=== PATIENT | male | born 1990 | race Caucasian/White ===

== ENCOUNTER 2016-05-19 18:39 | Emergency (ER) | payer OTHER ==
[2016-05-19 18:43] VITALS: BP 134/66; PULSE 108; RESP 20; TEMP 98.1
[2016-05-19] MEDS ORDERED: DIPH,PERTUS(ACELL)TETVAC-LF 0.5 ML VIAL IM ONE (19:09)
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
== END 2016-05-19 20:23 | disposition home or self-care (01) ==
LOC: EC 18:39
DX: S01.81XA Laceration without foreign body of other part of head, initial encounter (principal); W20.8XXA Other cause of strike by thrown, projected or falling object, initial encounter; F17.200 Nicotine dependence, unspecified, uncomplicated; Z23 Encounter for immunization
CPT/HCPCS: 12013; 90471; 90715; 99282

== ENCOUNTER 2018-06-05 17:40 | Emergency (ER) | payer BC, OTHER ==
[2018-06-05 17:44] VITALS: BP 129/81; PULSE 81; RESP 18; TEMP 98
[2018-06-05] MEDS ORDERED: LIDOCAINE 1% INJ 10MG/ML (20 ML MDV) SQ ONE (17:54)
[2018-06-05] MEDS ORDERED: DIPH,PERTUS(ACELL)TETVAC-LF 0.5 ML VIAL IM ONE (17:56)
--- NOTE | 2018-06-05 18:55 | ED ---
General Adult HPI - General Chief complaint: Wound/Laceration Stated complaint: LEFT WRIST LACERATION Time Seen by Provider: 06/05/18 17:46 Source: patient, RN notes reviewed Mode of arrival: ambulatory Limitations: no limitations - History of Present Illness Initial comments: 27-year-old male presents to the emergency department for a chief complaint of laceration of the left wrist. Patient states he was opening his cutting knife when he accidentally cut himself. Patient denies knife breaking at all. Patient denies any difficulty moving the wrist or fingers. Patient denies any loss of sensation. Patient states bleeding is controlled. Patient denies any other injuries. Patient is up-to-date on tetanus.Patient has no other complaints at this time including shortness of breath, chest pain, abdominal pain, nausea or vomiting, headache, or visual changes. - Related Data Previous Rx's Medication Instructions Recorded Cephalexin [Keflex] 500 mg PO Q6HR #28 cap 05/19/16 Allergies Allergy/AdvReac Type Severity Reaction Status Date / Time No Known Allergies Allergy Verified 06/05/18 17:43 Review of Systems ROS Statement: Those systems with pertinent positive or pertinent negative responses have been documented in the HPI. ROS Other: All systems not noted in ROS Statement are negative. Past Medical History Past Medical History: No Reported History History of Any Multi-Drug Resistant Organisms: None Reported Past Surgical History: No Surgical Hx Reported Past Psychological History: No Psychological Hx Reported Smoking Status: Former smoker Past Alcohol Use History: Occasional Past Drug Use History: None Reported General Exam Limitations: no limitations General appearance: alert, in no apparent distress Head exam: Present: atraumatic, normocephalic, normal inspection Eye exam: Present: normal appearance, PERRL, EOMI. Absent: scleral icterus, conjunctival injection, periorbital swelling ENT exam: Present: normal exam, mucous membranes moist Neck exam: Present: normal inspection, full ROM. Absent: tenderness, mening ismus, lymphadenopathy Respiratory exam: Present: normal lung sounds bilaterally. Absent: respiratory distress, wheezes, rales, rhonchi, stridor Cardiovascular Exam: Present: regular rate, normal rhythm, normal heart sounds. Absent: systolic murmur, diastolic murmur, rubs, gallop, clicks Extremities exam: Present: full ROM (Full range of motion of the left wrist and all digits in the left hand), normal capillary refill (Capillary refill less than 2 seconds, radial pulse 2+), other (Sensation intact in the left upper e xtremity. However there is a 4 cm laceration on the palmar aspect of the left hand extending into the left wrist. No deep structure injuries noted after thorough inspection). Absent: tenderness (Tenderness over the laceration site), pedal edema, joint swelling, calf tenderness Neurological exam: Present: alert, oriented X3, CN II-XII intact Psychiatric exam: Present: normal affect, normal mood Course Vital Signs 06/05/18 17:41 Temperature 98.0 F Pulse Rate 81 Respiratory 18 Rate Blood Pressure 129/81 O2 Sat by Pulse 99 Oximetry Procedures - Laceration Laceration #1 Consent Obtained: verbal consent Indication: laceration Site: hand Size (cm): 4 Description: linear Depth: simple, single layer Anesthetic Used: lidocaine 1% Anesthesia Technique: local infiltration Amount (mls): 9 Pre-repair: wound explored, irrigated extensively (With saline pressure irrigation), deep structures intact, wound margins revised (Could tissue trimmed back) Type of Sutures: other (Ethilon) Size of Sutures: 4-0 Number of Sutures: 8 Technique: simple, interrupted Patient Tolerated Procedure: well, no complications Medical Decision Making - Medical Decision Making 27-year-old male presents for laceration to left wrist and hand. This was accidentally when using a knife. Patient has full range of motion stand digits of the left upper extremity.. Wound appears clean however was cleaned thoroughly with saline pressure irrigation. Wound was explored extensively, no evidence for deep structure injury or FB. Wound is about 4 cm and was closed with 8 sutures. Discussed return precautions including those for infection. Discussed returning in 7-10 days for suture removal. Patient will be careful about movement of the wrist especially extending due to possibility of breaking sutures. He will follow up with primary care for wound recheck and return here if he has any worsening symptoms. Disposition Clinical Impression: Laceration Disposition: HOME SELF-CARE Condition: Good Instructions (If sedation given, give patient instructions): Care For Your Stitches (ED), Laceration (ED) Additional Instructions: Please keep the area clean. Monitor for signs of infection such as spreading or streaking redness, drainage, fevers or chills and return if these occur. Return if you have any pain or difficulty moving her fingers or wrist. Follow- up with primary care or orthopedics in one to 2 days. Return here to the emergency department in 7-10 days to have 8 sutures removed. Return earlier if you have an worsening symptoms. Is patient prescribed a controlled substance at d/c from ED?: No Referrals: Ronnie Mo MD [STAFF PHYSICIAN] - 1-2 days Time of Disposition: 18:53
== END 2018-06-05 19:14 | disposition home or self-care (01) ==
LOC: EC 17:40
DX: S61.512A Laceration without foreign body of left wrist, initial encounter (principal); Z87.891 Personal history of nicotine dependence; Z53.29 Procedure and treatment not carried out because of patient's decision for other reasons; W26.0XXA Contact with knife, initial encounter
CPT/HCPCS: 99282; 12002; J2001

== ENCOUNTER 2018-12-20 17:06 | Emergency (ER) | payer BC, OTHER ==
[2018-12-20 17:39] VITALS: BP 129/73; PULSE 97; RESP 16; TEMP 98.2
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
== END 2018-12-20 18:16 | disposition home or self-care (01) ==
LOC: EC 17:06
DX: S01.81XA Laceration without foreign body of other part of head, initial encounter (principal); Z87.891 Personal history of nicotine dependence; W18.09XA Striking against other object with subsequent fall, initial encounter; Y92.811 Bus as the place of occurrence of the external cause
CPT/HCPCS: 99282

== ENCOUNTER → 2022-07-19 | Outpatient (CLI) | payer BC ==
[2022-07-19 20:21] LABS: Basophils # (A) 0.02 X 10*3/uL (0.00-0.10); Basophils % (A) 0.3 %; Eosinophils # (A) 0.03 X 10*3/uL (0.04-0.35); Eosinophils % (A) 0.5 %; HCT 41.9 % (39.6-50.0); HGB 14.4 g/dL (13.0-17.0); Immature Grans, Automated 0.2 %; Lymphocytes # (A) 1.48 X 10*3/uL (0.90-5.00); Lymphocytes % (A) 25.1 %; MCH 33.6 pg (27.0-32.0); MCHC 34.4 g/dL (32.0-37.0); MCV 97.7 fL (80.0-97.0); Mean Platelet Volume 10.5 fL (9.5-12.2); Monocytes # (A) 0.56 X 10*3/uL (0.20-1.00); Monocytes % (A) 9.5 %; NRBC Per 100 WBC 0 /100 WBCS (0.0-0.0); Neutrophils % (A) 64.4 %; Platelet Count 247 X 10*3/uL (140-440); RBC 4.29 X 10*6/uL (4.40-5.60); RDW 11.9 % (11.5-14.5)
[2022-07-19 20:47] LABS: ALT 32 U/L (10-49); AST 35 U/L (14-35); African American GFR (CKD) 138.6 (60.0-200.0); Albumin/Globulin Ratio 2.55 (1.60-3.17); Alkaline Phosphatase 65 U/L (41-126); BUN/Creat Ratio 11.21 Ratio (12.00-20.00); Blood Urea Nitrogen 9.2 mg/dL (9.0-27.0); Calcium 9.8 mg/dL (8.7-10.3); Carbon Dioxide 28.9 mmol/L (20.0-27.5); Chloride 101 mmol/L (96-109); Chol/HDL Ratio 2.21 Ratio; Glucose 95 mg/dL (70-110); LDL Cholesterol,Calculated 99.5 mg/dL (0.0-131.0); Non-African American GFR(CKD) 119.6 (60.0-200.0); Potassium 4.6 mmol/L (3.5-5.5); Sodium 140 mmol/L (135-145)
== END | disposition home or self-care (01) ==
LOC: LABWHC1 15:04
PROVIDERS: ATTEND Pediatrics
DX: Z00.00 Encounter for general adult medical examination without abnormal findings (principal); E78.5 Hyperlipidemia, unspecified; D64.9 Anemia, unspecified; R00.2 Palpitations
CPT/HCPCS: 36415; 80053; 80061; 85025

== ENCOUNTER 2023-12-23 20:56 | Observation (INO) | payer OTHER ==
[2023-12-23] MEDS ORDERED: LORazepam 2 MG/ML INJ IV PRN ×2 (21:25)
[2023-12-23 22:01] LABS: Basophils % (A) 0 %; Eosinophils % (A) 0 %; HCT 42.5 % (39.0-53.0); HGB 14.4 gm/dL (13.0-17.5); Lymphocytes % (A) 34 %; MCH 33.2 pg (25.0-35.0); MCHC 33.8 g/dL (31.0-37.0); Mean Platelet Volume 7.6; Monocytes # (A) 0.4 k/uL (0-1.0); Monocytes % (A) 7 %; Neutrophils # (A) 3.3 k/uL (1.3-7.7); Neutrophils % (A) 56 %; Platelet Count 334 k/uL (150-450); RBC 4.34 m/uL (4.30-5.90); RDW 12.2 % (11.5-15.5); WBC 5.9 k/uL (3.8-10.6)
[2023-12-23] MEDS: ONDANSETRON 4 MG/2 ML VIAL IVP STA (22:15)
[2023-12-23 22:16] LABS: ALT 28 U/L (4-49); AST 48 U/L (17-59); African American GFR (CKD) >90 (>60 ml/min/1.73 sqM); Albumin 4.4 g/dL (3.5-5.0); Alkaline Phosphatase 59 U/L (38-126); Anion Gap 10 mmol/L; Blood Urea Nitrogen 3 mg/dL (9-20); Calcium 8.6 mg/dL (8.4-10.2); Carbon Dioxide 28 mmol/L (22-30); Chloride 107 mmol/L (98-107); Glucose 116 mg/dL (74-99); Lipase 164 U/L (23-300); Magnesium 1.9 mg/dL (1.6-2.3); Non-African American GFR(CKD) >90 (>60 ml/min/1.73 sqM); Phosphorus 3.4 mg/dL (2.5-4.5); Potassium 3.8 mmol/L (3.5-5.1); Sodium 145 mmol/L (137-145); Total Bilirubin 0.7 mg/dL (0.2-1.3); Total Protein 6.7 g/dL (6.3-8.2)
[2023-12-23] MEDS: SODIUM CHLORIDE 0.9% 1,000 ML IV STA (22:16)
[2023-12-23 22:31] LABS: Alcohol 352 mg/dL
--- NOTE | 2023-12-23 22:51 | ED ---
Alcohol HPI - General Chief Complaint: Alcohol Stated Complaint: Withdrawls Time Seen by Provider: 12/23/23 21:10 Source: patient Mode of arrival: ambulatory - History of Present Illness Initial Comments: 33-year-old male with history of alcohol use disorder presenting with chief co mplaint of alcohol withdrawal. Patient normally drinks 12 beers a day. His last drink was 4 hours ago. States that he has been on a binge for the last 2 days. Prior to that he was sober for the last 2 months. He is experiencing nausea, vomiting, diarrhea, tremoring, diaphoresis, anxiety. Denies headache. Denies chest pain or difficulty breathing. No abdominal pain. Patient was previously using Librium to help with his withdrawal symptoms however he is currently out. - Related Data Previous Rx's Medication Instructions Recorded Disulfiram 250 mg PO DIRECTED #60 tab 12/24/23 Famotidine [Pepcid] 20 mg PO BID #60 tablet 12/24/23 Allergies Allergy/AdvReac Type Severity Reaction Status Date / Time No Known Allergies Allergy Verified 12/24/23 07:43 Review of Systems ROS Statement: Those systems with pertinent positive or pertinent negative responses have been documented in the HPI. ROS Other: All systems not noted in ROS Statement are negative. Past Medical History Past Medical History: No Reported History History of Any Multi-Drug Resistant Organisms: None Reported Past Surgical History: No Surgical Hx Reported Past Psychological History: No Psychological Hx Reported Smoking Status: Vaper Past Alcohol Use History: Abuse, Occasional Past Drug Use History: None Reported General Exam General appearance: alert, in no apparent distress Head exam: Present: atraumatic, normocephalic, normal inspection Eye exam: Present: normal appearance Neck exam: Present: normal inspection. Absent: meningismus Respiratory exam: Present: normal lung sounds bilaterally. Absent: respiratory distress, wheezes, rales, rhonchi, stridor Cardiovascular Exam: Present: regular rate, normal rhythm, normal heart sounds. Absent: systolic murmur, diastolic murmur, rubs, gallop, clicks Neurological exam: Present: alert, oriented X3 Psychiatric exam: Present: normal affect, normal mood Skin exam: Present: warm, dry Course Vital Signs 12/23/23 12/23/23 12/23/23 20:58 23:05 23:43 Temperature 97.7 F Pulse Rate 85 60 96 Respiratory 18 16 17 Rate Blood Pressure 135/92 110/86 114/77 O2 Sat by Pulse 94 L 98 98 Oximetry 12/24/23 02:00 Temperature Pulse Rate 64 Respiratory 18 Rate Blood Pressure 122/84 O2 Sat by Pulse 98 Oximetry Medical Decision Making - Medical Decision Making Was pt. sent in by a medical professional or institution (MAYANK Caballero, COMMUNITY DEVELOPMENT COORDINATOR, urgent care, hospital, or [facility]...) When possible be specific @ -No Did you speak to anyone other than the patient for history (EMS, parent, family, police, friend...)? What history was obtained from this source @ -No Did you review nursing and triage notes (agree or disagree)? Why? @ -I reviewed and agree with nursing and triage notes Were old charts reviewed (outside hosp., previous admission, EMS record, old EKG, old radiological studies, urgent care reports/EKG's, [facility] records)? Report findings @ -No old charts were reviewed Differential Diagnosis (chest pain, altered mental status, abdominal pain women, abdominal pain men, vaginal bleeding, weakness, fever, dyspnea, syncope, headache, dizziness, GI bleed, back pain, seizure, CVA, palpatations, mental health, musculoskeletal)? @ -Differential includes alcohol withdrawal, DTs, alcohol intoxication, this is not an all-inclusive list EKG interpreted by me (3pts min.). @ -As above X-rays interpreted by me (1pt min.). @ -None done CT interpreted by me (1pt min.). @ -None done U/S interpreted by me (1pt. min.). @ -None done What testing was considered but not performed or refused? (CT, X-rays, U/S, labs)? Why? @ -None What meds were considered but not given or refused? Why? @ -None Did you discuss the management of the patient with other professionals (professionals i.e. MAYANK Caballero, COMMUNITY DEVELOPMENT COORDINATOR, lab, RT, psych nurse, child protective services social worker, swimming pool installer, teacher, landing signal officer, rn case mgr)? Give summary @ -My attending spoke with [facility] provider on-call, accepts admission Was smoking cessation discussed for >3mins.? @ -No Was critical care preformed (if so, how long)? @ -No Were there social determinants of health that impacted care today? How? (Homelessness, low income, unemployed, alcoholism, drug addiction, trans portation, low edu. Level, literacy, decrease access to med. care, fpc, rehab)? @ -No Was there de-escalation of care discussed even if they declined (Discuss DNR or withdrawal of care, Hospice)? DNR status @ -No What co-morbidities impacted this encounter? (DM, HTN, Smoking, COPD, CAD, Cancer, CVA, ARF, Chemo, Hep., AIDS, mental health diagnosis, sleep apnea, morbid obesity)? @ -Alcohol use disorder Was patient admitted / discharged? Hospital course, mention meds given and route, prescriptions, significant lab abnormalities, going to OR and other pertinent info. @ -33-year-old male presenting for evaluation of experiencing alcohol withdrawals. Patient is a daily drinker and has been on a binge for the last 2 days. Experiencing nausea vomiting diarrhea and some delirium also admits to tremors and headache. Is hoping to try rehab. History and physical examination are conducted. Serum alcohol 352. Remainder of labs are essentially unremarkable. Patient will be admitted for alcohol intoxication, hopes to attend rehab afterwards. My attending is Dr. Warner Undiagnosed new problem with uncertain prognosis? @ -No Drug Therapy requiring intensive monitoring for toxicity (Heparin, Nitro, Insulin, Cardizem)? @ -No Were any procedures done? @ -No Diagnosis/symptom? @ -Alcohol intoxication Acute, or Chronic, or Acute on Chronic? @ -Acute Uncomplicated (without systemic symptoms) or Complicated (systemic symptoms)? @ -Complicated Side effects of treatment? @ -No Exacerbation, Progression, or Severe Exacerbation? @ -No Poses a threat to life or bodily function? How? (Chest pain, USA, SD, pneumonia, PE, COPD, DKA, ARF, appy, cholecystitis, CVA, Diverticulitis, Homicidal, Suicidal, threat to staff... and all critical care pts) @ -Yes - Lab Data Result diagrams: 12/23/23 21:49 12/23/23 21:49 Lab Results 12/23/23 12/23/23 12/23/23 Range/Units 21:49 21:49 23:00 WBC 5.9 (3.8-10.6) k/uL RBC 4.34 (4.30-5.90) m/uL Hgb 14.4 (13.0-17.5) gm/dL Hct 42.5 (39.0-53.0) % MCV 98.0 (80.0-100.0) fL MCH 33.2 (25.0-35.0) pg MCHC 33.8 (31.0-37.0) g/dL RDW 12.2 (11.5-15.5) % Plt Count 334 (150-450) k/uL MPV 7.6 Neutrophils % 56 % Lymphocytes % 34 % Monocytes % 7 % Eosinophils % 0 % Basophils % 0 % Neutrophils # 3.3 (1.3-7.7) k/uL Lymphocytes # 2.0 (1.0-4.8) k/uL Monocytes # 0.4 (0-1.0) k/uL Eosinophils # 0.0 (0-0.7) k/uL Basophils # 0.0 (0-0.2) k/uL Sodium 145 (137-145) mmol/L Potassium 3.8 (3.5-5.1) mmol/L Chloride 107 (98-107) mmol/L Carbon Dioxide 28 (22-30) mmol/L Anion Gap 10 mmol/L BUN 3 L (9-20) mg/dL Creatinine 0.65 L (0.66-1.25) mg/dL Est GFR (CKD-EPI)AfAm >90 (>60 ml/min/1.73 sqM) Est GFR (CKD-EPI)NonAf >90 (>60 ml/min/1.73 sqM) Glucose 116 H (74-99) mg/dL Calcium 8.6 (8.4-10.2) mg/dL Phosphorus 3.4 (2.5-4.5) mg/dL Magnesium 1.9 (1.6-2.3) mg/dL Total Bilirubin 0.7 (0.2-1.3) mg/dL AST 48 (17-59) U/L ALT 28 (4-49) U/L Alkaline Phosphatase 59 (38-126) U/L Total Protein 6.7 (6.3-8.2) g/dL Albumin 4.4 (3.5-5.0) g/dL Lipase 164 (23-300) U/L Urine Opiates Screen Not Detected (NotDetected) Ur Oxycodone Screen Not Detected (NotDetected) Urine Methadone Screen Not Detected (NotDetected) Ur Barbiturates Screen Not Detected (NotDetected) U Tricyclic Antidepress Not Detected (NotDetected) Ur Phencyclidine Scrn Not Detected (NotDetected) Ur Amphetamines Screen Not Detected (NotDetected) U Methamphetamines Scrn Not Detected (NotDetected) U Benzodiazepines Scrn Not Detected (NotDetected) Urine Cocaine Screen Not Detected (NotDetected) U Marijuana (THC) Screen Not Detected (NotDetected) Serum Alcohol 352 H* mg/dL Disposition Clinical Impression: Alcoholic intoxication Disposition: ADMITTED IP TO THIS [facility] Time of Disposition: 01:04
[2023-12-23 23:54] LABS: Amphetamine Screen,Urine Not Detected (NotDetected); Barbiturate Screen,Urine Not Detected (NotDetected); Benzodiazepines Screen,Urine Not Detected (NotDetected); Cocaine Screen,Urine Not Detected (NotDetected); Methadone Screen, Urine Not Detected (NotDetected); Opiate Screen,Urine Not Detected (NotDetected); Oxycodone Screen, Urine Not Detected (NotDetected); Phencyclidine Screen,Urine Not Detected (NotDetected); Tricyclic Antidepressant,Urine Not Detected (NotDetected); Urn Cannabinoid Scrn Not Detected (NotDetected)
[2023-12-24] MEDS ORDERED: ACETAMINOPHEN TAB 325 MG TAB PO PRN (00:47)
[2023-12-24] MEDS ORDERED: NALOXONE 0.4 MG/ML 1 ML VIAL IV PRN (00:47)
[2023-12-24] MEDS: SODIUM CHLORIDE 0.9% 1,000 ML IV SCH (02:16)
[2023-12-24] MEDS: LORazepam 2 MG/ML INJ IV PRN (03:17)
[2023-12-24] MEDS: ONDANSETRON 4 MG/2 ML VIAL IVP PRN (09:40)
[2023-12-24] MEDS: FAMOTIDINE 20 MG TAB PO STA (11:01)
[2023-12-24] MEDS: ENOXAPARIN 40 MG/0.4 ML SYRINGE SQ SCH (11:06)
[2023-12-24 13:45] VITALS: BP 126/74; PULSE 90; RESP 14; TEMP 98.4
--- NOTE | 2023-12-24 17:29 | P.HPIM ---
History of Present Illness H&P Date: 12/24/23 Chief Complaint: Alcohol intoxication Pleasant 33-year-old patient follows with Dr. Copeland. Patient been drinking rather heavy alcohol for close to 2 years. He drinks typically malt beer anywhere from 12-20 beers a day. Patient does live with his girlfriend. And 2 children 4 years of age and 8 months of age. 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 Specially last 2 days. Patient thinks he is having a lot of stress from work. He did call up his boss who then sent him down to the ER. Also patient having some nausea. Slight vomiting. 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 Children 4 years and 8 months of age. Did smoke in the past. Drinks anywhere from 12-20 malt beer a day for last 2 years. More binge drinking last 2 3 days. Physical examination: VITAL SIGNS: 96.4, 55, 16, 117 x 70, 97% room air GENERAL: BMI 23.0, reclining bed awake a bit tired. EYES: Pupils equal. Conjunctiva kathy l. HEENT: External appearance of nose and ears normal, oral cavity grossly normal. NECK: JVD not raised; masses not palpable. HEART: First and second heart sounds are normal; no edema. LUNGS: Respiratory rate normal; clear to auscultation. ABDOMEN: Soft, nontender, liver spleen not palpable, no masses palpable. PSYCH: Alert and oriented x3; mood and affect slightly anxious l. MUSCULOSKELETAL:No Clubbing/cyanosis;muscles-grossly intact NEUROLOGICAL: Cranial nerves grossly intact; no facial asymmetry, power and sensation grossly intact. LYMPHATICS: No lymph nodes palpable in the axilla and neck INVESTIGATIONS, reviewed in the clinical context: December 23, 2023: White count 5.9 hemoglobin 14.4 platelets 334 sodium 145 potassium 3.8 BUN 3 creatinine 0.65 Urine drug screen: Negative Serum alcohol 352 Assessment plan: -Acute alcohol intoxication. Patient called his boss to bring him to the hospital/ER. [facility] protocol -Alcohol use disorder. Patient has not tried [place] or other supportive help in the past. Willing to do the same. 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 Soft diet Patient to be tried on a soft diet. Pepcid added. Increase activity. Counseled. Past Medical History Past Medical History: No Reported History History of Any Multi-Drug Resistant Organisms: None Reported Past Surgical History: No Surgical Hx Reported Past Psychological History: No Psychological Hx Reported Smoking Status: Current some day smoker, Vaper Past Alcohol Use History: Abuse, Occasional Past Drug Use History: Marijuana Medications and Allergies Home Medications Medication Instructions Recorded Confirmed Type Disulfiram 250 mg PO DIRECTED #60 tab 12/24/23 Rx Famotidine [Pepcid] 20 mg PO BID #60 tablet 12/24/23 Rx Allergies Allergy/AdvReac Type Severity Reaction Status Date / Time No Known Allergies Allergy Verified 12/24/23 07:43 Physical Exam Vitals: Vital Signs Temp Pulse Pulse Resp BP BP Pulse Ox 12/24/23 07:00 96.4 F L 55 L 16 117/70 97 12/24/23 02:42 97.5 F L 65 16 134/91 95 12/24/23 02:00 64 18 122/84 98 12/23/23 23:43 96 17 114/77 98 12/23/23 23:05 60 16 110/86 98 12/23/23 20:58 97.7 F 85 18 135/92 94 L Intake and Output 12/23/23 12/24/23 12/24/23 22:59 06:59 14:59 Intake Total 360 Balance 360 Intake: Oral 360 Other: Voiding Method Toilet # Voids 2 Weight 74.843 kg 74.843 kg Results CBC & Chem 7: 12/23/23 21:49 12/23/23 21:49 Labs: Abnormal Lab Results - Last 24 Hours (Table) 12/23/23 Range/Units 21:49 BUN 3 L (9-20) mg/dL Creatinine 0.65 L (0.66-1.25) mg/dL Glucose 116 H (74-99) mg/dL Serum Alcohol 352 H* mg/dL Thrombosis Risk Factor Assmnt - Choose All That Apply Any of the Below Risk Factors Present?: No
--- NOTE | 2023-12-24 17:31 | P.DS ---
Providers Date of admission: 12/24/23 00:47 Expected date of discharge: 12/24/23 Attending physician: Enrique Rowe Primary care physician: Dariel Copeland [facility] Course: Chief Complaint: Alcohol intoxication Pleasant 33-year-old patient follows with Dr. Copeland. Patient been drinking rather heavy alcohol for close to 2 years. He drinks typically malt beer anywhere from 12-20 beers a day. Patient does live with his girlfriend. And 2 children 4 years of age and 8 months of age. 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 Specially last 2 days. Patient thinks he is having a lot of stress from work. He did call up his boss who then sent him down to the ER. Also patient having some nausea. Slight vomiting. Patient does state he eats healthy Patient feeling better by late afternoon. Patient is counseled at length. Including lifestyle changes. Told to go to [place] around [place] locally in [facility]. Different medications were discussed finally he will be discharged on disulfiram. 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 Children 4 years and 8 months of age. Did smoke in the past. Drinks anywhere from 12-20 malt beer a day for last 2 years. More binge drinking last 2 3 days. Physical examination: VITAL SIGNS: 96.4, 55, 16, 117 x 70, 97% room air GENERAL: BMI 23.0, reclining bed awake a bit tired. EYES: Pupils equal. Conjunctiva kathy l. HEENT: External appearance of nose and ears normal, oral cavity grossly normal. NECK: JVD not raised; masses not palpable. HEART: First and second heart sounds are normal; no edema. LUNGS: Respiratory rate normal; clear to auscultation. ABDOMEN: Soft, nontender, liver spleen not palpable, no masses palpable. PSYCH: Alert and oriented x3; mood and affect slightly anxious l. MUSCULOSKELETAL:No Clubbing/cyanosis;muscles-grossly intact NEUROLOGICAL: Cranial nerves grossly intact; no facial asymmetry, power and sensation grossly intact. LYMPHATICS: No lymph nodes palpable in the axilla and neck INVESTIGATIONS, reviewed in the clinical context: December 23, 2023: White count 5.9 hemoglobin 14.4 platelets 334 sodium 145 potassium 3.8 BUN 3 creatinine 0.65 Urine drug screen: Negative Serum alcohol 352 Assessment plan: -Acute alcohol intoxication. Patient called his boss to bring him to the hospi cary/ER. [facility] protocol -Alcohol use disorder. Patient has not tried [place] or other supportive help in the past. Willing to do the same. 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 Soft diet Disposition: Home Past Medical History Past Medical History: No Reported History History of Any Multi-Drug Resistant Organisms: None Reported Past Surgical History: No Surgical Hx Reported Past Psychological History: No Psychological Hx Reported Smoking Status: Current some day smoker, Vaper Past Alcohol Use History: Abuse, Occasional Past Drug Use History: Marijuana Plan - Discharge Summary New Discharge Prescriptions: New Disulfiram 250 mg PO DIRECTED #60 tab Famotidine [Pepcid] 20 mg PO BID #60 tablet Discharge Medication List Disulfiram 250 mg PO DIRECTED #60 tab 12/24/23 [Rx] Famotidine [Pepcid] 20 mg PO BID #60 tablet 12/24/23 [Rx] Follow up Appointment(s)/Referral(s): Dariel Copeland MD [Primary Care Provider] - 1-2 days Patient Instructions/Handouts: Alcohol Intoxication (DC) Activity/Diet/Wound Care/Special Instructions: [facility] ([facility]), Tele [phone], Tele [phone]. Discharge/Stand Alone Forms: AA Meetings [address] - [facility], AA Meetings [place], Who Do I Call?, Community Resources, Outpatient Counseling, Inp Substance Abuse Facilities Discharge Disposition: HOME SELF-CARE
== END 2023-12-24 17:08 | disposition home or self-care (01) ==
LOC: EC 20:56 → 6NMEDSUR 12-24 00:47
PROVIDERS: ADMIT Hospitalist; ATTEND Hospitalist
DX: F10.239 Alcohol dependence with withdrawal, unspecified (principal); Y90.8 Blood alcohol level of 240 mg/100 ml or more; F41.9 Anxiety disorder, unspecified; R61 Generalized hyperhidrosis; R19.7 Diarrhea, unspecified; Z56.6 Other physical and mental strain related to work; F17.290 Nicotine dependence, other tobacco product, uncomplicated
CPT/HCPCS: 96376; 96375; 96361; 96374; 99285; 36415; 80053; 83690; 83735; 84100; 85025; 80306; 80320; G0378; J2060; J2405 ×2

== ENCOUNTER 2024-02-18 13:24 | Emergency (ER) | payer OTHER ==
--- NOTE | 2024-02-18 13:38 | ED ---
General Adult HPI - General Chief complaint: Head Injury Stated complaint: ETOH, Fall Time Seen by Provider: 02/18/24 13:31 Source: patient, RN notes reviewed Mode of arrival: EMS Limitations: no limitations - History of Present Illness Initial comments: This is a 33-year-old male presenting to the Emergency Department via EMS for complaint of a fall. Patient states that he had a relapse yesterday evening from alcohol. He was severely intoxicated and fell and struck the right side of his face onto a doorknob. He states that this fall was witnessed by his fiance. Patient states that the majority of the night he does not recall due to being severely intoxicated. Additionally, states that over the past few days he has been using cocaine. Currently he is denying headache, dizziness/blurry vision or double vision,, neck pain, focal neurological deficits. States he has not taken any medications since the injury. Denies blood thinner use. Denies other injuries at the time of the fall. No other acute complaints this time. - Related Data Previous Rx's Medication Instructions Recorded Disulfiram 250 mg PO DIRECTED #60 tab 12/24/23 Famotidine [Pepcid] 20 mg PO BID #60 tablet 12/24/23 Allergies Allergy/AdvReac Type Severity Reaction Status Date / Time No Known Allergies Allergy Verified 02/18/24 13:29 Review of Systems ROS Statement: Those systems with pertinent positive or pertinent negative responses have been documented in the HPI. ROS Other: All systems not noted in ROS Statement are negative. Past Medical History Past Medical History: No Reported History History of Any Multi-Drug Resistant Organisms: None Reported Past Surgical History: No Surgical Hx Reported Past Psychological History: No Psychological Hx Reported Smoking Status: Vaper Past Alcohol Use History: Abuse, Occasional Past Drug Use History: None Reported General Exam Limitations: no limitations Expanded Head exam: Present: contusion, hematoma. Absent: tenderness of temporal artery, CSF rhinorrhea, CSF otorrhea Eye exam: Present: PERRL, EOMI, periorbital swelling, periorbital tenderness (left). Absent: scleral icterus, conjunctival injection, nystagmus Pupils: Present: normal accommodation Expanded Eyelids: Swelling: Left Pupils: Regular, Round: Bilateral, Reactive: Bilateral Sclera/Conjunctival: Normal Inspection: Bilateral Anterior chamber: Normal Inspection: Bilateral Visual acuity (R) = 20/: 20 Visual acuity (L) = 20/: 20 Neck exam: Present: normal inspection. Absent: tenderness, meningismus, lymphadenopathy Respiratory exam: Present: normal lung sounds bilaterally. Absent: respiratory distress, wheezes, rales, rhonchi, stridor Cardiovascular Exam: Present: regular rate, normal rhythm, normal heart sounds. Absent: systolic murmur, diastolic murmur, rubs, gallop, clicks GI/Abdominal exam: Present: soft, normal bowel sounds. Absent: distended, tenderness, guarding, rebound, rigid Neurological exam: Present: alert, oriented X3, CN II-XII intact Skin exam: Present: warm, dry, intact, normal color. Absent: rash Course Vital Signs 02/18/24 02/18/24 13:26 14:46 Temperature 98 F 98.6 F Pulse Rate 89 76 Respiratory 20 18 Rate Blood Pressure 112/64 132/82 O2 Sat by Pulse 99 99 Oximetry Medical Decision Making - Medical Decision Making Was pt. sent in by a medical professional or institution (, PA, [facility], urgent care, hospital, or shelter...) When possible be specific @ -No Did you speak to anyone other than the patient for history (EMS, parent, family, police, friend...)? What history was obtained from this source @ -No Did you review nursing and triage notes (agree or disagree)? Why? @ -I reviewed and agree with nursing and triage notes Were old charts reviewed (outside hosp., previous admission, EMS record, old EKG, old radiological studies, urgent care reports/EKG's, shelter records)? Report findings @ -No old charts were reviewed Differential Diagnosis (chest pain, altered mental status, abdominal pain women, abdominal pain men, vaginal bleeding, weakness, fever, dyspnea, syncope, headache, dizziness, GI bleed, back pain, seizure, CVA, palpatations, mental health, musculoskeletal)? @ -Hematoma, facial bone fracture, intracranial hemorrhage, cervical neck sprain, cervical neck fracture, this list is not all inclusive EKG interpreted by me (3pts min.). @ -none X-rays interpreted by me (1pt min.). @ -None done CT interpreted by me (1pt min.). @ -CT without contrast of facial bones, head and cervical spine no acute process, evident for left scalp hematoma and periorbital hematoma U/S interpreted by me (1pt. min.). @ -None done What testing was considered but not performed or refused? (CT, X-rays, U/S, labs)? Why? @ -None What meds were considered but not given or refused? Why? @ -None Did you discuss the management of the patient with other professionals (professionals i.e. Dr., PA, [facility], lab, RT, psych nurse, social worker aide, rn perioperative, teacher, nuclear officer, family service caseworker)? Give summary @ -No Was smoking cessation discussed for >3mins.? @ -No Was critical care preformed (if so, how long)? @ -No Were there social determinants of health that impacted care today? How? (Homelessness, low income, unemployed, alcoholism, drug addiction, transportation, low edu. Level, literacy, decrease access to med. care, senior care, rehab)? @ -No Was there de-escalation of care discussed even if they declined (Discuss DNR or withdrawal of care, Hospice)? DNR status @ -No What co-morbidities impacted this encounter? (DM, HTN, Smoking, COPD, CAD, Cancer, CVA, ARF, Chemo, Hep., AIDS, mental health diagnosis, sleep apnea, morbid obesity)? @ -None Was patient admitted / discharged? Hospital course, mention meds given and route, prescriptions, significant lab abnormalities, going to OR and other pertinent info. @ -Discharge. 33-year-old male presenting with injury after fall. On evaluation patient noted to have large hematoma over the left forehead and left periorbital ecchymosis and edema. Examination of the left eye reveals a equal and reactive pupil with normal accommodation. Sclera no signs of injury. There is no signs of hyphema or chemosis. Patient is offered pain medication however has declined. Undiagnosed new problem with uncertain prognosis? @ -No Drug Therapy requiring intensive monitoring for toxicity (Heparin, Nitro, Insulin, Cardizem)? @ -No Were any procedures done? @ -No Diagnosis/symptom? @ -Hematoma, periorbital ecchymosis Acute, or Chronic, or Acute on Chronic? @ -acute Uncomplicated (without systemic symptoms) or Complicated (systemic symptoms)? @ -uncomplicated Side effects of treatment? @ -No Exacerbation, Progression, or Severe Exacerbation? @ -No Poses a threat to life or bodily function? How? (Chest pain, [place], [place], pneumonia, PE, COPD, DKA, ARF, appy, cholecystitis, CVA, Diverticulitis, Homicidal, Suicidal, threat to staff... and all critical care pts) @ -No Disposition Clinical Impression: Periorbital hematoma of left eye, Traumatic hematoma of forehead Disposition: HOME SELF-CARE Condition: Good Instructions (If sedation given, give patient instructions): Hematoma (ED) Additional Instructions: Please return to the Emergency Department if symptoms worsen or any other concerns. It is recommended that you continue to ice the affected area in addition to using Tylenol and Motrin as needed for reducing swelling and pain. Is patient prescribed a controlled substance at d/c from ED?: No Referrals: Dariel Copeland MD [Primary Care Provider] - 1-2 days Time of Disposition: 14:30
--- NOTE | 2024-02-18 14:22 | CT ---
EXAMINATION TYPE: CT brain cspine wo con DATE OF EXAM: 02/18/2024 2:15 PM COMPARISON: None available. CLINICAL INDICATION: Male, 33 years old with history of pain; pt fell out of bed and smashed face on a door knob. TECHNIQUE: Brain: Multiple axial CT images of the brain were obtained without IV contrast. Cspine: Axial CT images from the skull base to the inferior aspect of T2 we obtained without intraven ous contrast. Coronal and sagittal reformatted images were also reviewed. . CT DLP: 1133 mGycm, Automated exposure control for dose reduction was used. FINDINGS: Brain: No acute intracranial hemorrhage, midline shift or significant mass effect. Basal cisterns appear pat ent. Ventricles and sulci are within normal limits for size. No sizable extra-axial fluid collection. Large left frontal scalp hematoma and contusion. No definite depressed calvarial fracture identified . Cervical spine: Fracture: None. Osseous structures: Unremarkable Vertebral alignment: Within normal limits. Spinal canal/Neural Foramina: No evidence of significant spinal canal narrowing. No evidence for sign ificant neural foraminal stenosis. Neck soft tissues: Prevertebral soft tissues are within normal limits. Other: The airway is patent. The lung apices are clear. IMPRESSION: 1. No acute intracranial process. 2. No evidence of cervical spine fracture. 3. Large left frontal scalp hematoma/contusion. [facility], , 02/18/2024 2:20 PM
--- NOTE | 2024-02-18 14:26 | CT ---
EXAMINATION TYPE: CT facial bones wo con DATE OF EXAM: 02/18/2024 2:14 PM COMPARISON: None.. CLINICAL INDICATION: Male, 33 years old with history of injury, ecchymosis; PHH, pt fell out of bed a nd smashed face on a door knob. TECHNIQUE: Multiple unenhanced axial CT images were obtained of the facial bones soft tissue and bone windows. Coronal, axial and sagittal reformatted images were also provided in soft tissue and bone windows and submitted for interpretation. Additional 3-D reformatted images were obtained on a [employer] workstation. . CT DLP: 1133 mGycm, Automated exposure control for dose reduction was used. FINDINGS: There is no evidence of fracture, subluxation, or dislocation. Extensive left facial soft tissue swel ling/edema and left frontal scalp hematoma/contusion. The orbital contents are unremarkable. Intracon al fat planes appear preserved. The temporal-mandibular joints appear symmetric. The visualized porti on of the paranasal sinuses appear clear. IMPRESSION: Left facial soft tissue contusion and left frontal scalp hematoma without evidence of an acute facial bone fracture. [facility], , 02/18/2024 2:23 PM
[2024-02-18 14:53] VITALS: BP 132/82; PULSE 76; RESP 18; TEMP 98.6
== END 2024-02-18 14:55 | disposition home or self-care (01) ==
LOC: EC 13:24
DX: S00.12XA Contusion of left eyelid and periocular area, initial encounter (principal); S00.03XA Contusion of scalp, initial encounter; F17.290 Nicotine dependence, other tobacco product, uncomplicated; W23.0XXA Caught, crushed, jammed, or pinched between moving objects, initial encounter
CPT/HCPCS: 70450; 70486; 72125; 99284

== ENCOUNTER 2024-06-30 14:07 | Emergency (ER) | payer OTHER ==
[2024-06-30 14:12] VITALS: PULSE 82; TEMP 98
--- NOTE | 2024-06-30 15:08 | ED ---
Alcohol HPI - General Source: patient, RN notes reviewed Mode of arrival: ambulatory Limitations: no limitations <Evelyn Bentley - Last Filed: 06/30/24 15:07> <Pako Marie - Last Filed: 06/30/24 17:53> - General Chief Complaint: Alcohol Stated Complaint: alcohol withdrawl Time Seen by Provider: 06/30/24 15:07 - History of Present Illness Initial Comments: 33-year-old male presented the ER for evaluation of shakes. Patient states he relapsed on alcohol and is currently going through withdrawals. He reports shakes, nausea and vomiting. He does admit to drinking a beer 3 hours prior to aid with withdrawal symptoms. Denies history of seizures or DTs. (Evelyn Bentley) Dictation was produced using [employer] dictation software. please excuse any grammatical, word or spelling errors. Chief Complaint: 33-year-old male presents with concerns for alcohol withdrawal History of Present Illness: Patient is 33-year-old male who presents emergency department concerns of alcohol withdrawal. Patient states he relapsed on Friday. He has had 4 days of drinking. Patient states that prior to this he was sober for 70 days. On Friday he had reportedly around a liter of alcohol and he blew a 0.27. Since then he has been feeling some mild shakes and has had 1 or 2 drinks intermittently spread out over the last 3 days. States that he feels a little shaky last alcohol intake was approximately 4 hours ago. The ROS documented in this emergency department record has been reviewed and confirmed by me. Those systems with pertinent positive or negative responses have been documented in the HPI. All other systems are other negative and/or noncontributory. (Pako Marie) - Related Data Previous Rx's Medication Instructions Recorded Disulfiram 250 mg PO DIRECTED #60 tab 12/24/23 Famotidine [Pepcid] 20 mg PO BID #60 tablet 12/24/23 chlordiazePOXIDE HCl [Librium] 25 mg PO Q6HR 4 Days #15 capsule 06/30/24 Allergies Allergy/AdvReac Type Severity Reaction Status Date / Time No Known Allergies Allergy Verified 06/30/24 14:12 Review of Systems ROS Other: All systems not noted in ROS Statement are negative. <Evelyn Bentley - Last Filed: 06/30/24 15:07> ROS Other: All systems not noted in ROS Statement are negative. <Pako Marie - Last Filed: 06/30/24 17:53> ROS Statement: Those systems with pertinent positive or pertinent negative responses have been documented in the HPI. Past Medical History Past Medical History: No Reported History History of Any Multi-Drug Resistant Organisms: None Reported Past Surgical History: No Surgical Hx Reported Past Psychological History: No Psychological Hx Reported Smoking Status: Vaper Past Alcohol Use History: Abuse, Daily Past Drug Use History: None Reported <Evelyn Bentley - Last Filed: 06/30/24 15:07> General Exam Limitations: no limitations <Evelyn Bentley - Last Filed: 06/30/24 15:07> <Pako Marie - Last Filed: 06/30/24 17:53> - General Exam Comments Initial Comments: Visual Physical Exam Vital signs reviewed General: Well-appearing, nontoxic, no acute distress. Head: Normocephalic, atraumatic Eyes: PERRLA, EOMI ENT: Airway patent Chest: Nonlabored breathing Skin: No visual rash, normal skin tone Neuro: Alert and oriented 3 Musculoskeletal: No gross abnormalities (Evelyn Bentley) PHYSICAL EXAM: General Impression: Alert and oriented x3, not in acute distress HEENT: Normocephalic atraumatic, extra-ocular movements intact, pupils equal and reactive to light bilaterally, mucous membranes moist. Cardiovascular: Heart regular rate and rhythm Chest: Able to complete full sentences, no retractions, no tachypnea Abdomen: abdomen soft, non-tender, non-distended, no organomegaly Musculoskeletal: Pulses present and equal in all extremities, no peripheral edema Motor: no focal deficits noted Neurological: CN II-XII grossly intact, no focal motor or sensory deficits noted Skin: Intact with no visualized rashes Psych: Normal affect and mood (Pako Marie) Course Vital Signs 06/30/24 14:10 Temperature 98.0 F Pulse Rate 82 Respiratory 16 Rate Blood Pressure 138/79 O2 Sat by Pulse 96 Oximetry Medical Decision Making <Evelyn Bentley - Last Filed: 06/30/24 15:07> - Lab Data Result diagrams: 06/30/24 16:36 06/30/24 16:36 <Pako Marie D - Last Filed: 06/30/24 17:53> - Medical Decision Making I performed the quick note portion of this chart. Electronically signed by Evelyn Bentley PA-C (Evelyn Bentley) Was pt. sent in by a medical professional or institution (MAYANK Caballero, SEW[employer]ATMENT [employer] OPERATOR, urgent care, hospital, or halfway...) When possible be specific @ -No Did you speak to anyone other than the patient for history (EMS, parent, family, police, friend...)? What history was obtained from this source @ -No Did you review nursing and triage notes (agree or disagree)? Why? @ -I reviewed and agree with nursing and triage notes Were old charts reviewed (outside hosp., previous admission, EMS record, old EKG, old radiological studies, urgent care reports/EKG's, halfway records)? Report findings @ -No old charts were reviewed Differential Diagnosis (chest pain, altered mental status, abdominal pain women, abdominal pain men, vaginal bleeding, musculoskeletal, weakness, fever, dyspnea, syncope, headache, dizziness, GI bleed, back pain, seizure, CVA, p alpatations, mental health)? @ -Not applicable EKG interpreted by me (3pts min.). @ -None done X-rays interpreted by me (1pt min.). @ -None done CT interpreted by me (1pt min.). @ -None done U/S interpreted by me (1pt. min.). @ -None done What testing was considered but not performed or refused? (CT, X-rays, U/S, labs)? Why? @ -None What meds were considered but not given or refused? Why? @ -None Was smoking cessation discussed for >3mins.? @ -No Were there social determinants of health that impacted care today? How? (Homelessness, low income, unemployed, alcoholism, drug addiction, t ransportation, low edu. Level, literacy, decrease access to med. care, half-way, rehab)? @ -No Was there de-escalation of care discussed even if they declined (Discuss DNR or withdrawal of care, Hospice)? DNR status @ -No What co-morbidities impacted this encounter? (DM, HTN, Smoking, COPD, CAD, Cance r, CVA, ARF, Chemo, Hep., AIDS, mental health diagnosis, sleep apnea, morbid obesity)? @ -None Was patient admitted / discharged? Hospital course, mention meds given and route, prescriptions, significant lab abnormalities, going to OR and other pertinent info. @ -33-year-old well-appearing male presents to the emergency department for concern of acute alcohol withdrawal. Vital signs stable. Patient well- appearing. Patient in no acute distress at the bedside labs unremarkable. Patient not high risk. Patient given prescription for Librium taper. Return precaution discussed. Patient Did you discuss the management of the patient with other professionals (professionals i.e. , PA, SEW[employer] T[employer]MENT [employer] OPERATOR, lab, RT, psych nurse, health and social care teacher, crop farm helper, teacher, [employer] officer, case repairer)? Give summary @ -No Was critical care preformed (if so, how long)? @ -No Undiagnosed new problem with uncertain prognosis? @ -No Drug Therapy requiring intensive monitoring for toxicity (Heparin, Nitro, Insulin, Cardizem)? @ -No Were any procedures done? @ -No Diagnosis/symptom? Acute, or Chronic, or Acute on Chronic? Uncomplicated (without systemic symptoms) or Complicated (systemic symptoms)? @ -Alcohol withdrawal Side effects of treatment? @ -No Exacerbation, Progression, or Severe Exacerbation? @ -No Poses a threat to life or bodily function? How? (Chest pain, [place], NH, pneumonia, PE, COPD, DKA, ARF, appy, cholecystitis, CVA, Diverticulitis, Homicidal, Suicidal, threat to staff... and all critical care pts) @ -yes (Pako Marie) - Lab Data Lab Results 06/30/24 06/30/24 Range/Units 16:36 16:36 WBC 5.68 (4.50-10.00) 10*3/uL RBC 4.39 L (4.40-5.60) 10*6/uL Hgb 14.2 (13.0-17.0) g/dL Hct 40.7 (39.6-50.0) % MCV 92.7 (80.0-97.0) fL MCH 32.3 H (27.0-32.0) pg MCHC 34.9 (32.0-37.0) g/dL Plt Count 283 (140-440) 10*3/uL MPV 10.5 (9.5-12.2) fL Immature Gran % (Auto) 0.2 % Neutrophils % 56.4 % Lymphocytes % 30.5 % Monocytes % 11.1 % Eosinophils % 1.1 % Basophils % 0.7 % Immature Gran # 0.01 (0.00-0.04) 10*3/uL Neutrophils # 3.21 (1.80-7.70) 10*3/uL Lymphocytes # 1.73 (0.90-5.00) 10*3/uL Monocytes # 0.63 (0.20-1.00) 10*3/uL Eosinophils # 0.06 (0.04-0.35) 10*3/uL Basophils # 0.04 (0.00-0.10) 10*3/uL Sodium 138 (137-145) mmol/L Potassium 4.2 (3.5-5.1) mmol/L Chloride 97 L (98-107) mmol/L Carbon Dioxide 30 (22-30) mmol/L Anion Gap 11 mmol/L BUN 3 L (9-20) mg/dL Creatinine 0.74 (0.66-1.25) mg/dL Est GFR (CKD-EPI)AfAm >90 (>60 ml/min/1.73 sqM) Est GFR (CKD-EPI)NonAf >90 (>60 ml/min/1.73 sqM) Glucose 84 (74-99) mg/dL Calcium 9.8 (8.4-10.2) mg/dL Total Bilirubin 2.4 H (0.2-1.3) mg/dL AST 58 (17-59) U/L ALT 50 H (4-49) U/L Alkaline Phosphatase 49 (38-126) U/L Total Protein 6.9 (6.3-8.2) g/dL Albumin 4.8 (3.5-5.0) g/dL Serum Alcohol 34 mg/dL Disposition <Evelyn Bentley - Last Filed: 06/30/24 15:07> Is patient prescribed a controlled substance at d/c from ED?: No Time of Disposition: 17:51 <Pako Marie - Last Filed: 06/30/24 17:53> Clinical Impression: Alcohol withdrawal syndrome Disposition: HOME SELF-CARE Condition: Fair Additional Instructions: Day 1: 50mg q6h Day 2: 25mg q6h Day 3: 25mg q12h Day 4: 25mg at night Prescriptions: chlordiazePOXIDE HCl [Librium] 25 mg PO Q6HR 4 Days #15 capsule Referrals: Dariel Copeland MD [Primary Care Provider] - 1-2 days
[2024-06-30] MEDS: SODIUM CHLORIDE 0.9% 1,000 ML IV STA (16:36)
[2024-06-30] MEDS: LORazepam 1 MG/0.5 ML VIAL IV STA (16:37)
[2024-06-30 16:49] LABS: Basophils # (A) 0.04 10*3/uL (0.00-0.10); Basophils % (A) 0.7 %; Eosinophils # (A) 0.06 10*3/uL (0.04-0.35); Eosinophils % (A) 1.1 %; HCT 40.7 % (39.6-50.0); HGB 14.2 g/dL (13.0-17.0); Lymphocytes # (A) 1.73 10*3/uL (0.90-5.00); Lymphocytes % (A) 30.5 %; MCH 32.3 pg (27.0-32.0); MCHC 34.9 g/dL (32.0-37.0); MCV 92.7 fL (80.0-97.0); Mean Platelet Volume 10.5 fL (9.5-12.2); Monocytes # (A) 0.63 10*3/uL (0.20-1.00); Monocytes % (A) 11.1 %; Neutrophils # (A) 3.21 10*3/uL (1.80-7.70); Neutrophils % (A) 56.4 %; Platelet Count 283 10*3/uL (140-440); RBC 4.39 10*6/uL (4.40-5.60); RDW 11.9 % (11.5-14.5); WBC 5.68 10*3/uL (4.50-10.00)
[2024-06-30 17:19] LABS: ALT 50 U/L (4-49); AST 58 U/L (17-59); African American GFR (CKD) >90 (>60 ml/min/1.73 sqM); Albumin 4.8 g/dL (3.5-5.0); Alcohol 34 mg/dL; Alkaline Phosphatase 49 U/L (38-126); Anion Gap 11 mmol/L; Blood Urea Nitrogen 3 mg/dL (9-20); Calcium 9.8 mg/dL (8.4-10.2); Carbon Dioxide 30 mmol/L (22-30); Chloride 97 mmol/L (98-107); Glucose 84 mg/dL (74-99); Non-African American GFR(CKD) >90 (>60 ml/min/1.73 sqM); Potassium 4.2 mmol/L (3.5-5.1); Sodium 138 mmol/L (137-145); Total Bilirubin 2.4 mg/dL (0.2-1.3); Total Protein 6.9 g/dL (6.3-8.2)
[2024-06-30 18:10] VITALS: BP 134/74; RESP 20
== END 2024-06-30 18:10 | disposition home or self-care (01) ==
LOC: EC 14:07
DX: F10.239 Alcohol dependence with withdrawal, unspecified (principal); F17.290 Nicotine dependence, other tobacco product, uncomplicated; Y90.1 Blood alcohol level of 20-39 mg/100 ml
CPT/HCPCS: 36415; 80053; 85025; 99284; 96374; 96361 ×2; G0480; J2060; 80320